=== PATIENT | male | born 2000 | race Caucasian/White ===

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

== ENCOUNTER 2024-09-03 08:55 | Emergency (ER) | payer OTHER, SELFPAY ==
[2024-09-03 09:13] VITALS: BP 121/70; PULSE 80; RESP 16; TEMP 36.6; O2SAT 100
--- NOTE | 2024-09-03 09:21 | ED_ITS ---
HPI - URI/Sore Throat General Chief Complaint: Upper Respiratory Infection Stated Complaint: Sore Throat Time Seen by Provider: 09/03/24 09:21 History of Present Illness HPI Narrative: 23-year-old male presented for complaint of sore throat for 1 week, started with gum pain 5 days ago. Endorses ago be is to the upper front left. Also states the lower left gumline was bleeding during brushing today. Has not followed with a dentist for several years. Denies nausea vomiting, diarrhea, fevers or chills. Related Data Home Medications ?Medication ?Instructions ?Recorded ?Confirmed ?Last Taken ?Type No Home Medications 08/18/20 08/18/20 Unknown History Allergies Allergy/AdvReac Type Severity Reaction Status Date / Time No Known Allergies Allergy Unverified 09/03/24 09:12 Review of Systems Review of Systems: CONSTITUTIONAL: Denies body aches, fever, chills, or sweats. EYES: Denies visual changes, redness, or discharge. ENT: Reports sore throat and gum pain Denies rhinorrhea, congestion, or otalgia. CARDIOVASCULAR: Denies chest pain, palpitations, or edema. RESPIRATORY: Denies dyspnea. GASTROINTESTINAL: Denies abdominal pain, nausea, vomiting, or diarrhea. SKIN: Denies rash MUSCULOSKELETAL: Denies back pain, joint pain, or myalgia. NEUROLOGIC: Denies headache Exam Narrative: GENERAL: well-appearing EYES: conjunctivae clear ENT: Mucous membranes moist. Mild swelling to the posterior aspect of the gumline of #9. Oropharynx erythematous without lesions. Tonsils enlarged 1+ and without exudate. No drooling, no hoarseness, no trismus, uvula midline. No tripod positioning, hot potato voice, or soft palate swelling. TMs pearly noonan with normal light reflex bilaterally; no tragal tenderness. NECK: Supple. No lymphadenopathy CHEST: Clear to auscultation, breath sounds equal. No respiratory distress, speaks in full sentences. HEART: Regular rate and rhythm. No murmur heard. SKIN: Warm, dry, no rash. NEURO: Alert and oriented x3. Course Course Emergency Course: Patient is aware of diagnosis, understands and agrees to treatment plan. Anticipatory guidance given. Patient agrees to follow-up as directed and is aware of reasons to seek care at the emergency department. Portions of this record may have been created with voice recognition software Level of Care: Express Care Visit Vital Signs Vital signs: Vital Signs Temperature 97.8 F 09/03/24 09:13 Pulse Rate 80 09/03/24 09:13 Respiratory Rate 16 09/03/24 09:13 Blood Pressure 121/70 09/03/24 09:13 Pulse Oximetry 100 09/03/24 09:13 Oxygen Delivery Room Air 09/03/24 09:13 Temperature 97.8 F 09/03/24 09:13 Pulse Rate 80 09/03/24 09:13 Respiratory Rate 16 09/03/24 09:13 Blood Pressure 121/70 09/03/24 09:13 Pulse Oximetry 100 09/03/24 09:13 Oxygen Delivery Room Air 09/03/24 09:13 MDM - URI/Sore Throat MDM Narrative Medical decision making narrative: neg strep result reviewed with pt. Advise supportive treatments. Patient is appropriate for outpatient treatment and follow-up. Differential Diagnosis Differential diagnosis: Likely upper respiratory infection, viral infection and pharyngitis Discharge Plan Discharge Clinical Impression: Pharyngitis, Gingivitis Patient Disposition: Home, Self-Care Condition: Stable Instructions: Antibiotic Form, Gingivitis (ED) Additional Instructions: Rapid strep swab was negative today You will be notified in a few days if the culture comes back positive for strep, and appropriate antibiotics will be called in at that time. if symptoms are due to a viral illness, it is not treated with antibiotics. Viral symptoms can be present for up to 10-14 days. Tylenol every 8 hours as needed for pain/fever Avoid foods that irritate your mouth. These may include nuts, chips, pretzels, certain spices, salty foods and acidic fruits, such as pineapple, grapefruit and oranges. Regular brushing after meals and flossing once a day can keep your mouth clean and free of foods that might trigger irritation Use a soft brush to help prevent irritation to delicate mouth tissues, and avoid toothpastes and mouth rinses that contain sodium lauryl sulfate Soft foods, cool liquids, warm tea. Gargle with warm saltwater twice a day. Chloraseptic spray and throat lozenges. Rest and stay hydrated. Consult your doctor if you experience: ? Unusually large canker sores ? Recurring sores, with new ones developing before old ones heal, or frequent outbreaks ? Persistent sores, lasting two weeks or more ? Sores that extend into the lips themselves ? Pain that you can't control with self-care measures ? Extreme difficulty eating or drinking ? High fever along with canker sores --Follow up with your PCP --Go to the ER immediately if you cannot swallow your saliva, trouble breathing/wheezing, throat swelling, pain is persistent and severe Patient Language: Tamazight Prescriptions: No Action No Home Medications Follow-up/Referrals: PHYSICIAN,CORE DRILLER HELPER [Primary Care Provider] - Time of Disposition: 09:32
[2024-09-03 09:22] LABS: EDSTREPNEGPOS1 Negative (Negative)
--- OUTSIDE RECORDS SUMMARY | 2024-09-03 09:26 | XMS_ITS | Patient Health Summary ---
Author Organization [facility] Address [address] [place] [address] Care Team Providers Care Core Carrier Name Role Phone Albert Torre MD Primary Care Provider [phone] Albert Torre MD Unavailable [phone] Note from [facility],non-owned Affiliates and Associated Physician Practices is amultiple site organization consisting of ambulatory clinics and hospital sitesin [place], [place], [place] and [place]. This disclosure is being madepursuant to the Care Everywhere program and may not contain all information available regarding this patient. Last updated 18.[facility] [employer] Allergies No known active allergies Medications Be aware that medications may not be up to date on this document. Always verify current medications with the patient. No known medications Social History Tobacco Use Types Packs/Day Years Used Date Smoking Tobacco: Never Smokeless Tobacco: Never Alcohol Use Standard Drinks/Week Comments No 0 (1 standard drink = 0.6 oz pur e alcohol) Sex and Gender Information Value Date Recorded Sex Assigned at Not on file Gender Identity Not on file Sexual Orientation Not on file Last Filed Vital Signs Vital Sign Reading Time Taken Comments Blood Pressure 125/70 02/24/2021 9:14 AM CDT Pulse 82 02/24/2021 9:14 AM CDT Temperature 37.1 C (98.7 F) 02/23/2018 10:15 AM CDT Respiratory Rate 20 02/23/2018 10:1 5 AM CDT Oxygen Saturation 98% 05/16/2011 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
--- OUTSIDE RECORDS SUMMARY | 2024-09-03 09:26 | XMS_ITS | Clinical Summary ---
Author Organization [facility] Address [address] [place] [address] Care Team Providers Care Day Care Worker Name Role Phone Albert Torre MD Primary Care Provider [phone] Albert Torre MD Unavailable [phone] Source Comments [facility],non-owned Affiliates and Associated Physician Practices is amultiple site organization consisting of ambulatory clinics and hospital sitesin [place], [place], [place] and [place]. This disclosure is being madepursuant to the Care Everywhere program and may not contain all information available regarding this patient. 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 Inhaled Oxygen Concentration - - Weight 109.9 kg (242 lb 3.2 oz) 02/24/2021 9:14 AM CDT Height 182.9 cm (6') 02/24/2021 9:14 AM CDT Body Mass Index 32.85 02/24/2021 9:14 AM CDT Plan of Treatment Health Maintenance Due Date Last Done Comments HIV SCREENING 2017 HPV VACCINE (1 - Male 3-dose series) 2017 MENINGOCOCCAL (Group B) VACC INE SHARED DECISION-MAKING (1 of 2 - Standard) 2018 HEPATITIS C SCREENING 12/04/2020 DTAP/TDAP/TD VACCINES (1 - Tdap) 2021 HEPATITIS B VACCINE (1 of 3 - 19+ 3-dose series) 2021 COVID-19 VACCINE (1 - 2023-2 5 season) 2024 INFLUENZA VACCINE (#1) 2024 DEPRESSION SCREENING 06/25/2024 ZOSTER VACCINE (1 of 2) 2052 HIB VACCINE Aged Out No longer eligi ble based on patient's age to complete this topic MENINGOCOCCAL GROUPS A/C/Y/W VACCINE Aged Out No longer eligible b ased on patient's age to complete this topic PNEUMOCOCCAL VACCINE Aged Out No long er eligible based on patient's age to complete this topic Insurance Payer Benefit Plan / Group Subscriber ID Effective Dates Phone Address Type [facility] MEDICAID [id number] Effective for all dates [employer] CLAIM[employer] DEPARTMENT [address] [place] [address] Medicaid Managed Care [employer] [place] [employer] [place] [id number] Effective for all dates [employer] CLAIM[employer] DEPARTMENT [address] [place] [address] Medicaid Managed Care [employer] [place] [employer] [id number] Effective for all dates ATT[employer] CLAIMS DEPARTMENT [address] [place] [address] Medicaid Managed Care [employer] [place] [employer] [employer] [place] [id number] Effective for all dates ATT[employer] CLAIMS DEPARTMENT [address] [place] [address] Medicaid Managed Care [employer] [place] [employer] [employer] [place] [id number] Effective for all dates ATT[employer] CLAIMS DEPARTMENT [address] [place] [address] Medicaid Managed Care [facility] [place] [facility] MEDICAID [id number] Effective for all dates ATTN CLAIMS DEPARTMENT [address] [place] [address] Medicaid Managed Care [facility] MEDICAID [id number] Effective for all dates ATTN CLAIMS DEPARTMENT [address] [place] [address] Medicaid Managed Care [facility] MEDICAID [id number] Effective for all dates ATTN CLAIMS DEPARTMENT [address] [place] [address] Medicaid Managed Care [facility] MEDICAID [id number] Effective for all dates ATTN CLAIMS DEPARTMENT [address] [place] [address] Medicaid Managed Care [facility] [employer] MEDICAID [id number] Effective for all dates ATTN CLAIMS DEPARTMENT [address] [place] [address] Medicaid Managed Care [facility] MEDICAID [id number] Effective for all dates ATTN CLAIMS DEPARTMENT [address] [place] [address] Medicaid Managed Care [facility] MEDICAID [id number] Effective for all dates ATTN CLAIMS DEPARTMENT [address] [place] [address] Medicaid Managed Care MEDICAID - OUT OF STATE MEDICAID - [place] PUBLIC AID [id number] Effective for all dates [address] [address] [place] [address] Medicaid [facility] [employer] MEDICAID [id number] Effective for all dates ATTN CLAIMS DEPARTMENT [address] [place] [address] Medicaid Managed Care MEDICAID - OUT OF [facility] MEDICAID - [place] PUBLIC AID [id number] Effective for all dates [address] [address] [place] [address] Medicaid DAVE,ARTEMIO E Personal/Family Other [address] [place] [address] DAVE,ARTEMIO E Personal/Family Other [address] [place] [address] DAVE,ARTEMIO E Personal/Family Other [address] [place] [address] DAVE,ARTEMIO E Personal/Family Other [address] [place] [address] DAVE,ARTEMIO E Personal/Family Other [address] [place] [address] RODRIGUE MAYESIA Personal/Family Mother 1967 [address] [place] [address] Care Teams Day Care Worker Relationship Specialty Start Date End Date Albert Torre MD [address] [place] [address] PCP - General Pediatrics 02/23/18 Albert Torre MD [address] [place] [address] 02/23/18
--- OUTSIDE RECORDS SUMMARY | 2024-09-03 09:26 | XMS_ITS | Referral Summary ---
Author Organization [facility] Address [address] [place] [address] Care Team Providers Care Lump Room Supervisor Name Role Phone Albert Torre MD Primary Care Provider [phone] Albert Torre MD Unavailable [phone] Source Comments [facility],non-owned Affiliates and Associated Physician Practices is amultiple site organization consisting of ambulatory clinics and hospital sitesin [place], [place], [place] and [place]. This disclosure is being madepursuant to the Care Everywhere program and may not contain all information available regarding this patient. 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 Inhaled Oxygen Concentration - - Weight 109.9 kg (242 lb 3.2 oz) 02/24/2021 9:14 AM CDT Height 182.9 cm (6') 02/24/2021 9:14 AM CDT Body Mass Index 32.85 02/24/2021 9:14 AM CDT Plan of Treatment Not on file Insurance Payer Benefit Plan / Group Subscriber ID Effective Dates Phone Address Type [facility] MEDICAID [id number] Effective for all dates [employer] CLAIM[employer] DEPARTMENT [address] [place] [address] Medicaid Managed Care [facility] MEDICAID [id number] Effective for all dates [employer] CLAIM[employer] DEPARTMENT [address] [place] [address] Medicaid Managed Care [facility] MEDICAID [id number] Effective for all dates [employer] CLAIMS DEPARTMENT [address] [place] [address] Medicaid Managed Care [facility] [place] [facility] [place] [id number] Effective for all dates [employer] CLAIM[employer] DEPARTMENT [address] [place] [address] Medicaid [facility] Care [facility] MEDICAID [id number] Effective for all dates [employer] CLAIMS DEPARTMENT [address] [place] [address] Medicaid [facility] Care [facility] MEDICAID [id number] Effective for all dates [employer] CLAIMS DEPARTMENT [address] [place] [address] Medicaid [facility] Care [facility] MEDICAID [id number] Effective for all dates ATT[employer] CLAIMS DEPARTMENT [address] [place] [address] Medicaid Managed Care [facility] MEDICAID [id number] Effective for all dates ATT[employer] CLAIMS DEPARTMENT [address] [place] [address] Medicaid Managed Care [facility] MEDICAID [id number] Effective for all dates ATT[employer] CLAIMS DEPARTMENT [address] [place] [address] Medicaid Managed Care [facility] MEDICAID [id number] Effective for all dates [employer] CLAIMS DEPARTMENT [address] [place] [address] Medicaid Managed Care [facility] MEDICAID [id number] Effective for all dates [employer] CLAIMS DEPARTMENT [address] [place] [address] Medicaid Managed Care [facility] MEDICAID [id number] Effective for all dates [employer] CLAIMS DEPARTMENT [address] [place] [address] Medicaid Managed Care MEDICAID - OUT OF [facility] MEDICAID - [place] PUBLIC AID [id number] Effective for all dates [address] [address] [place] [address] Medicaid [facility] MEDICAID [id number] Effective for all dates ATT[employer] CLAIMS DEPARTMENT [address] [place] [address] Medicaid Managed Care MEDICAID - OUT OF [facility] MEDICAID - [place] PUBLIC AID [id number] Effective for all dates [address] [address] [place] [address] Medicaid DAVE,ARTEMIO E Personal/Family Other [address] [place] [address] DAVE,ARTEMIO E Personal/Family Other [address] [place] [address] DAVE,ARTEMIO E Personal/Family Other [address] [place] [address] DAVE,ARTEMIO E Personal/Family Other [address] [place] [address] DAVE,ARTEMIO E Personal/Family Other [address] [place] [address] DAVE,ARTEMIO E Personal/Family [address] [place] [address] ROSEMARY MAYES Personal/Family Mother 1967 [address] [place] [address] Care Teams Lump Room Supervisor Relationship Specialty Start Date End Date Albert Torre MD [address] [place] [address] PCP - General Pediatrics 02/23/18 Albert Torre MD [address] [place] [address] 02/23/18
--- OUTSIDE RECORDS SUMMARY | 2024-09-03 09:26 | XMS_ITS | Clinical Summary ---
Author Organization [facility] Address [address] [place] [address] Phone Care Team Providers Care Shroudman Name Role Phone Albert Torre MD Primary Care Provider [phone] Allergies No known active allergies Medications traMADol (ULTRAM) 50 MG Tablet Take 1-2 Tabs by mouth every 6 hours as needed for Severe pain. 6 Tab 09/22/2018 Active Social History Tobacco Use Types Packs/Day Years Used Date Smoking Tobacco: Never Sex and Gender Information Value Date Recorded Sex Assigned at Not on file Legal Sex Male 7:59 PM CDT Gender Identity Not on file Sexual Orientation Not on file Last Filed Vital Signs Vital Sign Reading Time Taken Comments Blood Pressure 121/65 09/22/2018 6:48 PM CDT Pulse 92 09/22/2018 6:48 PM CDT Temperature 36 C (96.8 F) 09/22/2018 6:48 PM CDT Respiratory Rate 20 09/22/2018 6:48 PM CDT Oxygen Saturation 98% 09/22/2018 6:48 PM CDT Inhaled Oxygen Concentration - - Weight 83.7 kg (184 lb 9.6 oz) 09/22/2018 6:48 P M CDT Height 182.9 cm (6') 09/22/2018 6:48 PM CDT Body Mass Index 25.04 09/22/2018 6:48 PM CDT Plan of Treatment Not on file Insurance MEDICAID [employer] Care Teams Shroudman Relationship Specialty Start Date End Date Albert Torre MD [address] [facility] [address] [place] [address] PCP - General Pediatrics 02/18/16
== END 2024-09-03 09:35 | disposition home or self-care (01) ==
PROVIDERS: Emergency Provider Nurse Practitioner Family
DX: J02.9 Acute pharyngitis, unspecified (principal); K05.10 Chronic gingivitis, plaque induced
CPT/HCPCS: 87081; 87880; 99213; G0463